=== PATIENT | male | born 1970 | race Caucasian/White ===

== ENCOUNTER → 2023-07-25 12:52 | Outpatient (REF) | payer BC, SELFPAY ==
--- NOTE | 2023-07-25 14:18 | CARDSERVLU ---
Echocardiogram with Lumason completed after protocol screening completed. Allergies verified.
Patent IV site: __left AC__
IV site flushed with 0.9% NaCl pre and post administration.
Diluted bolus method utilized to enhance visualization of ventricular johnson.
Total volume given: _6.0___ mL
Patient tolerated all procedures well without complications.
#22 radha placed left AC. Lumason given. INT d/c'd. dsg applied and pressure held.
== END ==
LOC: RCS 12:52
PROVIDERS: ATTENDING PHYSICIAN Internal Medicine Cardiovascular Disease; FAMILY PHYSICIAN Nurse Practitioner
DX: I48.21 Permanent atrial fibrillation (principal)
CPT/HCPCS: 93306; Q9950